=== PATIENT | male | born 1985 | race Caucasian/White ===

== ENCOUNTER 2016-03-10 23:55 | Emergency (ER) | payer OTHER ==
[~2016-03-10] VITALS: Ht 182.9 cm; Wt 101.9 kg
[~2016-03-10 23:55] MED LIST: MOBIC15 MG PO; PEPCID20 MG PO; PROMETHAZINE HC25 M1 PO; VICODIN,LORT1 TABLET PO
[2016-03-11 01:43] LABS: HEMATOCRIT 44.2 % (38.0-50.0); MCH 29.6 PG (29.0-34.0); MCHC 34.4 G/DL (30.0-36.0); MCV 86.2 FL (86-99); MEAN PLAT.VOLUME 9.1 uM^3 (9.0-12.4); PLATELET COUNT 230 K/uL (156-360); RBC DIS.WIDTH-CV 13.2 % (11.8-14.6); RBC DIS.WIDTH-SD 41.1 % (39-53); RED BLOOD COUNT 5.13 M/uL (4.00-5.50); WHITE BLOOD COUNT 10.1 K/uL (4.1-10.2)
[2016-03-11 02:00] LABS: CHLORIDE 105 mEq/L (99-109); POTASSIUM 4.3 mEq/L (3.7-5.4); SODIUM 141 mEq/L (136-147)
[2016-03-11 02:02] LABS: GLUCOSE 94 mg/dL (70-99)
[2016-03-11 02:03] LABS: ANION GAP 10 MEQ/L (2-14)
[2016-03-11 02:04] LABS: TOTAL BILIRUBIN 0.6 mg/dL (0.0-1.0)
[2016-03-11 02:06] LABS: ALKALINE PHOSPHATASE 88 IU/L (3-129); GFR ESTIMATE (CALCULATED) > 59 mL/min/
[2016-03-11 02:07] LABS: UREA NITROGEN (BUN) 13 mg/dL (9-23)
[2016-03-11 02:09] LABS: LIPASE 8 U/L (1.0-51.0)
[2016-03-11] MEDS ORDERED: ANUSOL HC,ANUCO25 MG PR (03:31)
[2016-03-11] MEDS ORDERED: MIRALAX255 GM PO (03:31)
[2016-03-11 04:05] VITALS: BP 156/94
[2016-03-12 16:27] LABS: POC NON-PRINT COM 1 ND
== END 2016-03-11 04:06 | disposition home or self-care (01) ==
LOC: EME 23:55
PROVIDERS: Emergency Medicine; Physician Assistant
DX: K64.4 Residual hemorrhoidal skin tags (principal); K59.00 Constipation, unspecified; F17.200 Nicotine dependence, unspecified, uncomplicated
CPT/HCPCS: 80053; 82272; 83690; 85027; 99281; 99284

== ENCOUNTER 2017-05-04 13:34 | Emergency (ER) | payer OTHER ==
[~2017-05-04] VITALS: Ht 182.9 cm; Wt 94.2 kg
[~2017-05-04 13:34] MED LIST changes: +ANUSOL HC,ANUCO25 MG PR; +MIRALAX255 GM PO
[2017-05-04 14:19] LABS: ALBUMIN 4.6 g/dL (3.2-4.8)
[2017-05-04 14:20] LABS: CHLORIDE 104 mEq/L (99-109); POTASSIUM 4.1 mEq/L (3.7-5.4); SODIUM 139 mEq/L (136-147)
[2017-05-04 14:21] LABS: HEMATOCRIT 48.1 % (38.0-50.0); HEMOGLOBIN 16.7 G/DL (12.5-16.6); MCH 30.1 PG (29.0-34.0); MCHC 34.7 G/DL (30.0-36.0); MCV 86.7 FL (86-99); PLATELET COUNT 318 K/uL (156-360); RBC DIS.WIDTH-CV 12.7 % (11.8-14.6); RBC DIS.WIDTH-SD 40.4 % (39-53); RED BLOOD COUNT 5.55 M/uL (4.00-5.50); WHITE BLOOD COUNT 13.4 K/uL (4.1-10.2)
[2017-05-04 14:22] LABS: GLUCOSE 138 mg/dL (70-99); TOTAL PROTEIN 7.1 g/dL (6.4-8.3)
[2017-05-04 14:24] LABS: TOTAL BILIRUBIN 1.4 mg/dL (0.0-1.0)
[2017-05-04 14:25] LABS: ALKALINE PHOSPHATASE 90 IU/L (3-129)
[2017-05-04 14:26] LABS: CREATININE 0.9 mg/dL (0.6-1.3); GFR ESTIMATE (CALCULATED) > 59 mL/min/ (58.99-99999)
[2017-05-04 14:27] LABS: AST (GOT) 17 IU/L (2-34); UREA NITROGEN (BUN) 12 mg/dL (9-23)
[2017-05-04 14:28] LABS: ALT (GPT) 21 IU/L (3-49)
[2017-05-04 15:18] LABS: APPEARANCE TURBID ((CLEAR)); BILIRUBIN NEGATIVE; BLOOD NEGATIVE; COLOR YELLOW ((YELLOW)); GLUCOSE (STRIP) 50; KETONES 20; LEUKOCYTES NEGATIVE; NITRITE NEGATIVE; PROTEIN (STRIP) 100; SPECIFIC GRAVITY 1.026 (1.000-1.030)
[2017-05-04 15:43] LABS: BACTERIA NONE SEEN /HPF; EPITHELIAL CELLS NONE SEEN /HPF; MUCUS NONE SEEN /LPF; RED BLOOD CELLS NONE SEEN /HPF (0-5); UCUL ADDED? NO; WHITE BLOOD CELLS NONE SEEN /HPF (0-5)
[2017-05-04 15:44] LABS: AMORPHOUS PHOSPHATE CRYSTALS 3+
[2017-05-04 16:26] LABS: AMPHETAMINE NEGATIVE (500 ng/mL); BARBITURATES NEGATIVE (200 ng/mL); BENZODIAZEPINES NEGATIVE (150 ng/mL); BUPRENORPHINE PRESUMPTIVE POSITIVE (10 ng/mL); COCAINE NEGATIVE (150 ng/mL); METHADONE NEGATIVE (200 ng/mL); METHAMPHETAMINE NEGATIVE (500 ng/mL); OPIATES (MORPHINE) NEGATIVE (100 ng/mL); OXYCODONE NEGATIVE (100 ng/mL); PHENCYCLIDINE NEGATIVE (25 ng/mL); PROPOXYPHENE NEGATIVE (300 ng/mL); THC CANNABINOIDS PRESUMPTIVE POSITIVE (50 ng/mL); TRICYCLIC ANTIDEPRESSANTS NEGATIVE (300 ng/mL)
[2017-05-04] MEDS ORDERED: ZOFRAN ODT4 MG PO (16:32)
[2017-05-04 16:39] VITALS: BP 161/88
== END 2017-05-04 16:41 | disposition home or self-care (01) ==
LOC: EME 13:34
PROVIDERS: Nurse Practitioner Family
DX: B34.9 Viral infection, unspecified (principal); F11.20 Opioid dependence, uncomplicated; Z71.6 Tobacco abuse counseling; F17.200 Nicotine dependence, unspecified, uncomplicated
CPT/HCPCS: 80053; 81003; 84999; 85027; 99281; 99284; J1630; J1885